=== PATIENT | male | born 1990 | race Caucasian/White ===

== ENCOUNTER 2019-04-11 17:39 | Outpatient (CLI) | payer SELFPAY ==
--- NOTE | 2019-04-11 | XR_ITS ---
WS: [id number] Right knee, 3 views, 04/11/2019 Clinical Data: RIGHT ANTERIOR KNEE PAIN Comparison: None. Findings: No fractures or dislocations are seen. The joint spaces are normal. The patella is intact. The soft t issues are unremarkable. XR/XR knee RT 3V* [id number] Impression: Negative right knee.
== END 2019-04-11 17:40 | disposition home or self-care (01) ==
LOC: RADOUTREAD 04-12 11:34
PROVIDERS: Visit Provider Nurse Practitioner Family
DX: M25.561 Pain in right knee (principal)